=== PATIENT | male | born 1950 | race Caucasian/White ===

== ENCOUNTER 2020-12-17 05:41 | Outpatient (CLI) | payer MEDICARE ==
[~2020-12-17] VITALS: Ht 180.3 cm; Wt 79.5 kg
[2020-12-17] MEDS ORDERED: METF-397 PO (13:59)
== END 2020-12-17 14:02 | disposition home or self-care (01) ==
LOC: PREOP 05:41
PROVIDERS: ATTEND Specialist
DX: Z01.818 Encounter for other preprocedural examination (principal)

== ENCOUNTER 2020-12-21 09:25 | Day surgery (SDC) | payer MEDICARE, MEDICAID ==
[~2020-12-21] VITALS: Ht 180.3 cm; Wt 79.5 kg
[~2020-12-21 09:25] MED LIST: METF-397 PO
[2020-12-21] MEDS: TETRACAINE 0.5% OPHTH SOLN 4 ML BTL (SINGLE DOSE ONLY) OU PRN ×4 (09:43→10:01)
[2020-12-21] MEDS ORDERED: TIMOLOL MALEATE 0.5% 5 ML (TIMOPTIC) BTL OU PRN (09:45)
[2020-12-21] MEDS ORDERED: POVIDONE (BETADINE) OPHTH SOLN 5% 30 ML OP ONE (09:45)
[2020-12-21] MEDS ORDERED: MOXIFLOXACIN OPHTH SOLN 5 MG/ML 0.3 ML SYRINGE OP ONE (09:45)
[2020-12-21] MEDS ORDERED: LIDOCAINE PF 1% 2 ML VIAL IR PRN (09:45)
[2020-12-21] MEDS: TROPICAMIDE 1% OPH SOLN (MYDRIACYL) 15 ML BTL OP SCH ×3 (09:49→10:02)
[2020-12-21] MEDS: PHENYLEPHRINE 10% OPHTH (NEO-SYN) 5 ML BTL OU SCH ×3 (09:49→10:01)
[2020-12-21 09:55] VITALS: BP 173/89
[2020-12-21] MEDS ORDERED: MIDAZOLAM 2 MG/2 ML (VERSED) VIAL ONE (10:10)
--- NOTE | 2020-12-21 10:24 | Ophthalmologist Pre-Op Note ---
Pre-Operative Progress Note H&P Reviewed The H&P was reviewed, patient examined and no changes noted. Date H&P Reviewed: Dec 21, 2020 Time H&P Reviewed: 10:24 Pre-Op Dx Cataract, Right Eye TJ KANG MD Dec 21, 2020 10:24
--- NOTE | 2020-12-21 10:55 | Ophthalmology Operative Report ---
Cataract removal/placement IOL PREOPERATIVE DIAGNOSIS: Cataract Right Eye POSTOPERATIVE DIAGNOSIS: Cataract Right Eye PROCEDURE: Cataract removal and placement of posterior chamber implant, right eye SURGEON: Estrada Kang ANESTHESIA: Topical with sedation COMPLICATIONS: None ESTIMATED BLOOD LOSS: Minimal DESCRIPTION OF PROCEDURE: After proper informed consent was obtained, the patient, a 70 male, was taken to the Operating Room and the right eye was anesthetized with tetracaine. The right eye was then prepped and draped in the usual manner. A wire lid speculum was placed. A paracentesis was made at the left hand position. Preservative free lidocaine was injected into the anterior chamber followed by viscoelastic. A clear corneal incision was made in the temporal position. A capsulorrhexis was preformed and the central nuclear and cortical material were removed. The posterior capsule was polished and Eugenio 23.5 AU00T0 IOL was placed into the capsular bag. The residual viscoelastic was aspirated and balanced saline solution was injected into the anterior chamber. Moxifloxacin was injected into the anterior chamber. The wound was checked and found to be water tight. The patient tolerated the procedure well without complications. ESTRADA KANG MD Dec 21, 2020 10:55
[2020-12-21] MEDS ORDERED: acetaZOLAMIDE ER 500 MG CAP (DIAMOX SEQUELS) PO ONE (11:00)
[2020-12-21 11:08] VITALS: BP 180/99
--- NOTE | 2020-12-21 12:55 | Anesthesia-General Post-Op ---
MAC Patient Condition Mental Status/LOC: Same as Preop Cardiovascular: Satisfactory Nausea/Vomiting: Absent Respiratory: Satisfactory Pain: Controlled Complications: Absent Post Op Complications Complications None Follow Up Care/Instructions Patient Instructions None needed. Anesthesiology Discharge Order Discharge Order Patient is doing well, no complaints, stable vital signs, no apparent adverse anesthesia problems. No complications reported per nursing. DEBORAH WASHINGTON CRNA Dec 21, 2020 12:55
== END 2020-12-21 11:05 ==
LOC: SDC 09:25
PROVIDERS: ATTEND Specialist
DX: H25.11 Age-related nuclear cataract, right eye (principal); E11.9 Type 2 diabetes mellitus without complications; F17.200 Nicotine dependence, unspecified, uncomplicated; Z79.84 Long term (current) use of oral hypoglycemic drugs
CPT/HCPCS: 82947